=== PATIENT | female | born 1930 | race Caucasian/White ===

== ENCOUNTER 2018-06-02 00:50 | Emergency (ER) | payer MEDICARE, OTHER ==
[~2018-06-02] VITALS: Ht 152.4 cm; Wt 54.5 kg
[2018-06-02 00:53] VITALS: Ht 152.4 cm; Wt 54.5 kg
--- NOTE | 2018-06-02 02:16 | ERD ---
ER Documentation Chief Complaint Chief Complaint ALOC X 4 HOURS AGO HPI 87-year-old female who presents to the emergency room with altered mental status. History is extremely limited as family is not readily available. There is a language barrier. Later history is provided that the patient has had a gradual decline over the pa st 24 hours. Her family was concerned that the patient was having trouble breathing but the family's home health care provider did note that the oxygenation machine was turned off despite a baseline of 2 L. The patient has since returned to baseline per family at bedside. They do report that the patient is DNR/DNI. They do not have any documentation but this has been confirmed with the granddaughter and daughter as well as nurse at bedside. During the patient's encounter translation services were utilized Language: [Slovak] Source: [Family] [in person] ROS All systems reviewed and are negative except as per history of present illness. Allergies Allergies: Coded Allergies: No Known Allergy (Unverified , 06/02/18) PMhx/Soc Hx Respiratory Disorders: Yes ("LUNG PROBLEM" ON HOME O2) Hx Cardiac Disorders: Yes (HTN, "HEART PROBLEMS") Hx Alcohol Use: No Hx Substance Use: No Hx Tobacco Use: No Smoking Status: Never smoker FmHx Family History: No diabetes Physical Exam Vitals Vital Signs Date Temp Pulse Resp B/P (MAP) Pulse Ox O2 O2 Flow FiO2 Time Delivery Rate 06/02/18 97.6 108 24 172/90 99 02:39 (117) 06/02/18 Nasal 2 01:38 Cannula 06/02/18 97.6 114 24 179/80 98 00:53 (113) Physical Exam General: Elderly female, no distress, protecting airway Head: Normocephalic, atraumatic. Eyes: Pupils equally reactive, EOM intact ENT: Dry mucous membranes, Neck: Supple, no lymphadenopathy Respiratory: Lungs clear bilaterally, no distress Cardiovascular: tachy, no murmurs, rubs, or gallops Abdominal: Soft, non-tender, non-distended, no peritoneal signs : Deferred MSK: No edema, no unilateral swelling, 5/5 strength Neurologic: Alert and oriented, moving all extremities, normal speech, no focal weakness, no cerebellar signsno meningismus Skin: No rash Psych: Normal mood Result Diagram: 06/02/18 0112 06/02/18 0112 Results 24 hrs Laboratory Tests Test 06/02/18 00:52 06/02/18 00:56 06/02/18 01:12 06/02/18 01:20 Blood Gas Blood arterial Specimen Source Arterial Blood 06/02/2018 1:05: Date Drawn 46 AM Arterial Blood 7.394 pH (Temp corrected ) Arterial Blood 58.5 mmhg pCO2 (Temp correct) Arterial Blood 130.9 mmHG pO2 (Temp corrected ) Arterial Blood 34.9 mmol/L HCO3 Arterial Blood 8.2 mmol/L Base Excess Arterial Blood 98.3 mmHG Oxygen Saturati on Kermit Test ACCEPTAB Arterial Blood Left Radial Gas Puncture Site Arterial 0 % Blood Carboxyhe moglobin Arterial Blood 0.5 % Methemoglobin Oxyhemoglobin 97.8 % Percent Blood Gas 37.0 C Temperature Blood Gas NASAL CANNULA Modality FiO2 27.0 % Blood Gas DR. ENCARNACION Critical Value Read Back Blood Gas MR Notified Whom Blood Gas 06/02/2018 1:12: Notified Time 32 AM POC Venous 1.3 mmol/L Lactate White Blood 9.7 10^3/ul Count Red Blood Count 4.30 10^6/ul Hemoglobin 12.7 g/dl Hematocrit 39.5 % Mean 91.9 fl Corpuscular Volume Mean 29.5 pg Corpuscular Hemoglobin Mean 32.2 g/dl Corpuscular Hemoglobin Conc ent Red Cell 14.6 % Distribution Width Platelet Count 420 10^3/UL Mean Platelet 11.1 fl Volume Immature 0.500 % Granulocytes % Neutrophils % 67.9 % Lymphocytes % 21.8 % Monocytes % 8.8 % Eosinophils % 0.7 % Basophils % 0.3 % Nucleated Red 0.0 /100WBC Blood Cells % Immature 0.050 10^3/ul Granulocytes # Neutrophils # 6.6 10^3/ul Lymphocytes # 2.1 10^3/ul Monocytes # 0.9 10^3/ul Eosinophils # 0.1 10^3/ul Basophils # 0.0 10^3/ul Nucleated Red 0.0 10^3/ul Blood Cells # Prothrombin 12.5 Sec Time Prothrombin 1.0 Time Ratio INR 0.92 International Normalized Rati o Activated 30.3 Sec Partial Thrombo plast Time Sodium Level 132 mmol/L Potassium Level 4.4 mmol/L Chloride Level 86 mmol/L Carbon Dioxide 37 mmol/L Level Anion Gap 9 Blood Urea 12 mg/dl Nitrogen Creatinine 0.37 mg/dl Est Glomerular mL/min Filtrat Rate mL/min Glucose Level 264 mg/dl Calcium Level 10.0 mg/dl Total Bilirubin 0.1 mg/dl Direct 0.00 mg/dl Bilirubin Indirect 0.1 mg/dl Bilirubin Aspartate Amino 19 IU/L Transf (AST/SGO T) Alanine < 6 IU/L Aminotransferas e (ALT/SGPT) Alkaline 122 IU/L Phosphatase Troponin I < 0.012 ng/ml Total Protein 7.5 g/dl Albumin 3.8 g/dl Globulin 3.70 g/dl Albumin/Globuli 1.02 n Ratio Salicylates < 1.0 mg/dl Level Acetaminophen < 10.0 ug/ml Level Ethyl Alcohol < 10.0 mg/dl Level Urine Color YELLOW Urine Clarity CLEAR Urine pH 7.0 Urine Specific 1.024 [place] Urine Ketones NEGATIVE mg/dL Urine Nitrite NEGATIVE mg/dL Urine Bilirubin NEGATIVE mg/dL Urine NEGATIVE mg/dL Urobilinogen Urine Leukocyte NEGATIVE Zahra/ul Esterase Urine 2 /HPF Microscopic RBC Urine 9 /HPF Microscopic WBC Urine NEGATIVE mg/dL Hemoglobin Urine Glucose 3+ mg/dL Urine Total 1+ mg/dl Protein Urine Opiates Negative Screen Urine Negative Barbiturates Urine Negative Amphetamines Screen Urine Negative Benzodiazepines Screen Urine Cocaine Negative Screen Urine Negative Cannabinoids Procedures/MDM EKG, MONITORS, & DIAGNOSTIC IMAGING: EKG: I reviewed and interpreted a 12-lead EKG. Rhythm: Sinus tachycardia ST Changes: No contiguous ST segment elevations T waves: No contiguous T wave inversions Impression: Abnormal EKG Chest x-ray: IMPRESSION: 1. 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 Prior studies are not available to assess interval change. An underlying infiltrate cannot be excluded. 2. Chronic lung changes. 3. Multiple old posterior right rib fracture deformities. 4. Degenerative changes within the spine. CT brain: IMPRESSION: 1. Motion artifact limiting the evaluation. 2. Moderate diffuse atrophy. 3. Microangiopathic ischemic changes. 4. Vascular calcifications. LAB INTERPRETATION: * No evidence of infection with normal white count, no left shift * Chemistry with slight hyponatremia of 132. Hyperglycemia without DKA. Normal lactic acid of 1.3. Negative troponin. * Urinalysis not consistent with UTI. Drug screen negative. MEDICAL DECISION MAKING: The patient presents with transient altered mental status that has since resolved. This is possibly related to the patient's oxygen being turned off. Arterial blood gas is reassuring. The patient is currently protecting her airway and does not require advanced airway or intubation. Sepsis screening will be initiated and CT imaging of the brain would be appropriate. The family confirms DNR/DNI. No documentation available. A document was created and signed with witness is here in the emergency room. ER COURSE: * The patient continues to be stable in the emergency room setting. Laboratory testing and diagnostic imaging unrevealing other than possible mild dehydration in the setting of slight hyponatremia. * The patient does not exhibit any infectious signs or symptoms at this time. No clear source of infection that would warrant antibiotics. Culture monitoring appropriate. CONSULTATION: Dr. Romero DISPOSITION PLAN: Accepting care team and consultations: I discussed the current laboratory data, diagnostic imaging and emergency care provided. Admitting team: Dr. Romero, the patient is capitated to [facility] in stable for transport. Family informed. Admitting team indication: Insurance directed Departure Diagnosis: Primary Impression: Altered mental status Altered mental status type: unspecified Qualified Codes: R41.82 - Altered mental status, unspecified Additional Impression: Hyponatremia Condition: Stable STEPAN ENCARNACION MD Jun 02, 2018 02:14
[2018-06-02 09:00] VITALS: BP 137/63; PULSE 108; RESP 18
== END 2018-06-02 09:59 | disposition short-term general hospital (02) ==
LOC: E/R 00:50
DX: R41.82 Altered mental status, unspecified (principal); E87.1 Hypo-osmolality and hyponatremia; I10 Essential (primary) hypertension
CPT/HCPCS: 36415; 36600; 70450; 71045; 80053; 80307; 81001; 82803; 83605; 84484; 85025; 85610; 85730; 87040; 93005